=== PATIENT | female | born 1995 | race Caucasian/White ===

== ENCOUNTER 2017-07-27 20:20 | Emergency (ER) | payer MEDICAID ==
[~2017-07-27] VITALS: Ht 167.6 cm; Wt 74.4 kg
[2017-07-27 20:34] VITALS: BP 134/74; Ht 167.6 cm; Wt 74.4 kg
== END 2017-07-27 22:46 | disposition left against medical advice (07) ==
LOC: ED 20:20
DX: Z53.21 Procedure and treatment not carried out due to patient leaving prior to being seen by health care provider (principal)

== ENCOUNTER 2018-05-14 10:54 | Emergency (ER) | payer MEDICAID ==
[~2018-05-14] VITALS: Ht 160 cm; Wt 75.3 kg
[2018-05-14 10:56] VITALS: BP 120/80; Ht 160 cm; Wt 75.3 kg
== END 2018-05-14 12:40 | disposition home or self-care (01) ==
LOC: ED 10:54
DX: J02.9 Acute pharyngitis, unspecified (principal)
CPT/HCPCS: J1100

== ENCOUNTER 2018-11-26 09:40 | Emergency (ER) | payer MEDICAID | END 2018-11-26 11:22 | disposition home or self-care (01) | LOC: ED 09:40 ==

== ENCOUNTER 2018-11-27 22:13 | Emergency (ER) | payer MEDICAID ==
[~2018-11-27] VITALS: Ht 160 cm; Wt 76.7 kg
[2018-11-27 22:16] VITALS: Ht 160 cm; Wt 76.7 kg
[2018-11-28 03:58] VITALS: BP 112/65
== END 2018-11-28 03:58 | disposition home or self-care (01) ==
LOC: ED 22:13
DX: N83.8 Other noninflammatory disorders of ovary, fallopian tube and broad ligament (principal); N94.6 Dysmenorrhea, unspecified; N39.0 Urinary tract infection, site not specified
CPT/HCPCS: 87491; 87591